=== PATIENT | female | born 1970 | race Caucasian/White ===

== ENCOUNTER 2016-03-06 08:35 | Day surgery (SDC) | payer OTHER ==
[~2016-03-06] VITALS: Ht 162.6 cm; Wt 60.7 kg
[~2016-03-06 08:35] MED LIST: LEVOFLOXACIN750 MG PO; MONONESSA1 EACH PO; MULTIVITAMIN1 EAC2 PO; NASACORT10.8 ML BOTH NARES; OMEPRAZOLE40 M1 PO; PERCOCET 5/31 TABLET PO; ZOFRAN4 MG PO
[2016-03-06] MEDS ORDERED: PROTONIX40 MG PO (09:16)
[2016-03-06 09:19] VITALS: BP 109/76
[2016-03-06] MEDS ORDERED: PERCOCET 5/31 TABLET PO (11:16)
[2016-03-06 12:10] VITALS: BP 122/76
[2016-03-06 13:15] VITALS: BP 129/79
[2016-03-07] MEDS ORDERED: ZOFRAN ODT4 MG PO (00:18)
== END 2016-03-06 13:15 | disposition home or self-care (01) ==
LOC: SDC 08:35
PROC: 0HB9XZZ Excision of Perineum Skin, External Approach (ICD-10-PCS; principal; 2016-03-06)
DX: K62.89 Other specified diseases of anus and rectum (principal); M79.2 Neuralgia and neuritis, unspecified; K21.9 Gastro-esophageal reflux disease without esophagitis; M54.5 Low back pain; D86.9 Sarcoidosis, unspecified
CPT/HCPCS: 88305; J2250; J2405; J3010

== ENCOUNTER 2016-03-06 21:59 | Emergency (ER) | payer OTHER ==
[~2016-03-06] VITALS: Ht 162.6 cm; Wt 61.4 kg
[~2016-03-06 21:59] MED LIST changes: +PROTONIX40 MG PO
[2016-03-06 22:48] LABS: HEMATOCRIT 37.1 % (36.0-46.0); MCV 88.3 FL (83-99); MEAN PLAT.VOLUME 9.1 uM^3 (9.5-12.4); PLATELET COUNT 283 K/uL (156-360); RBC DIS.WIDTH-CV 13.1 % (11.8-14.6); RBC DIS.WIDTH-SD 41.1 % (39-53)
[2016-03-06 22:49] LABS: WHITE BLOOD COUNT 11.9 K/uL (4.1-10.2)
[2016-03-06 22:55] LABS: CHLORIDE 106 mEq/L (99-109); POTASSIUM 4.1 mEq/L (3.7-5.4); SODIUM 137 mEq/L (136-147)
[2016-03-06 22:57] LABS: GLUCOSE 110 mg/dL (70-99)
[2016-03-06 22:59] LABS: ANION GAP 8 MEQ/L (2-14)
[2016-03-06 23:01] LABS: GFR ESTIMATE (CALCULATED) > 59 mL/min/
[2016-03-06 23:02] LABS: UREA NITROGEN (BUN) 14 mg/dL (9-23)
[2016-03-06 23:12] LABS: QUANTITATIVE HCG < 4.0 MIU/ML
[2016-03-07] MEDS ORDERED: ZOFRAN ODT4 MG PO (00:18)
[2016-03-07 00:28] LABS: TOTAL BILIRUBIN 0.5 mg/dL (0.0-1.0)
[2016-03-07 00:29] LABS: ALKALINE PHOSPHATASE 36 IU/L (3-129)
[2016-03-07 00:31] LABS: DIRECT BILIRUBIN 0.2 mg/dL (0.0-0.3)
[2016-03-07 00:32] LABS: LIPASE 70 U/L (1.0-51.0)
[2016-03-07 00:53] VITALS: BP 105/57
== END 2016-03-07 00:57 | disposition home or self-care (01) ==
LOC: EME 21:59
DX: R11.2 Nausea with vomiting, unspecified (principal); Z87.442 Personal history of urinary calculi; Z87.891 Personal history of nicotine dependence; K21.9 Gastro-esophageal reflux disease without esophagitis
CPT/HCPCS: 80048; 80076; 81003; 83690; 84702; 85027; 99281; 99285; J0780; J1170; J2405; J7030